=== PATIENT | male | born 1965 | race Caucasian/White ===

== ENCOUNTER 2023-04-19 08:41 | Day surgery (SDC) | payer BC ==
[2023-04-18 09:44] VITALS: BMI 28.2
[~2023-04-19 08:41] MED LIST: LACTATED RINGERS 1,000 ML IV SCH
[2023-04-19 09:48] VITALS: TEMP 97.6
[2023-04-19 09:57] LABS: Glucose,Whole Blood 146 mg/dL (70-110)
[2023-04-19] MEDS ORDERED: PROPOFOL 10 MG/ML 20 ML VIAL IV ONE (10:31)
--- NOTE | 2023-04-19 10:42 | P.PCN ---
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 PROCEDURE PERFORMED: Colonoscopy. PREOPERATIVE DIAGNOSIS: Follow-up large distal rectal polyp with high-grade dysplasia noted in December 2019. IV sedation per Anesthesia. PROCEDURE: After informed consent was obtained, the patient, was brought into the endoscopy unit. IV sedation was administered by Anesthesia under continuous monitoring. Digital rectal examination was normal. Initially the Olympus CF-160 flexible video colonoscope was then inserted in the rectum, gradually advanced into the splenic flexure. Careful examination was performed. Prep was excellent. Mucosa of the descending colon, sigmoid [place] and rectum appeared normal. Retroflexion was performed in the rectum and no residual polyp identified at the site of previous polypectomy. Patient tolerated the procedure well. Impression: Normal-appearing colon from rectum to the splenic flexure with no evidence of any residual polyp Recommendations findings of this examination were discussed with the patient as well as his family. He was advised to have a repeat colonoscopy in 3 years..
[2023-04-19 10:59] LABS: Glucose,Whole Blood 148 mg/dL (70-110)
[2023-04-19 11:10] VITALS: BP 143/67; PULSE 70; RESP 18
== END 2023-04-19 11:30 | disposition home or self-care (01) ==
LOC: ORWHC2ENDO 08:41
PROVIDERS: ATTEND Internal Medicine Gastroenterology
DX: Z12.11 Encounter for screening for malignant neoplasm of colon (principal); Z86.010 Personal history of colon polyps; Z79.899 Other long term (current) drug therapy; Z79.84 Long term (current) use of oral hypoglycemic drugs
CPT/HCPCS: 45330; J2704